=== PATIENT | female | born 1980 | race Caucasian/White ===

== ENCOUNTER 2016-09-12 20:57 | Emergency (ER) | payer OTHER ==
[2016-09-12] MEDS ORDERED: Sodium Chloride 0.9% 1,000 ML IV ONE (21:05)
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
--- NOTE | 2016-09-13 13:24 | Diagnostic Imaging Report ---
Skull series (4 views) HISTORY: Headache, trauma No acute bony abnormalities. No fractures. Normal aeration of the paranasal sinuses. IMPRESSION: No acute abnormalities
== END 2016-09-12 22:00 | disposition still patient (30) ==
LOC: ER 20:57
DX: S09.90XA Unspecified injury of head, initial encounter (principal); I10 Essential (primary) hypertension; F10.129 Alcohol abuse with intoxication, unspecified; Y04.0XXA Assault by unarmed brawl or fight, initial encounter; Y93.9 Activity, unspecified; Y92.89 Other specified places as the place of occurrence of the external cause; Y99.8 Other external cause status
CPT/HCPCS: 70260-TC; Z7502

== ENCOUNTER 2016-11-14 22:52 | Emergency (ER) | payer OTHER ==
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
[2016-11-14 23:44] LABS: % EOSINOPHILS 1.1 % (0.0-5.0); % LYMPHOCYTES 36.2 % (20.0-50.0); % MONOCYTES 6.6 % (2.0-10.0); % NEUTROPHILS 55.1 % (40.0-80.0); HEMATOCRIT 36.3 % (35.0-45.0); HEMOGLOBIN 12.8 gm/dL (11.7-15.5); MEAN CELL VOLUME 90.5 fl (81-100); MEAN CORPUSCULAR HGB CONC 35.3 pg (28.0-36.0); MEAN PLATELET VOLUME 7.4 fl; NEUTROPHILE ABSOLUTE 4.3 Th/cmm (1.8-8.0); RED BLOOD COUNT 4.01 Mil/cmm (3.80-5.10); RED CELL DISTRIBUTION WIDTH 11.2 % (11.5-20.0); WHITE BLOOD COUNT 7.9 Th/cmm (4.8-10.8)
[2016-11-14 23:45] LABS: PLATELET COUNT 322 Th/cmm (150-400)
[2016-11-14 23:51] LABS: PROTHROMBIN TIME (TEST) 8.9 SECONDS (9.5-11.5)
[2016-11-14 23:54] LABS: INR 0.9 (0.5-1.4)
[2016-11-14 23:55] LABS: ALB/GLOB RATIO 1.5 (1.0-1.8); ALKALINE PHOSPHATASE 71 U/L (34-104); ANION GAP 10.9 (7.0-16.0); BILIRUBIN,TOTAL 0.3 mg/dL (0.3-1.0); BUN - UREA NITROGEN 10 mg/dL (7-25); BUN/CREATININE RATIO 11.1; CALCIUM SERUM 9.3 mg/dL (8.6-10.3); CARBON DIOXIDE 21.9 mEq/L (21.0-31.0); CHLORIDE 106 mEq/L (98-107); CREATININE - SERUM 0.9 mg/dL (0.6-1.2); GLUCOSE 108 mg/dL (70-105); POTASSIUM SERUM 3.8 mEq/L (3.5-5.1); SGOT 18 U/L (13-39); SGPT/ALT 16 U/L (7-52); SODIUM SERUM 135 mEq/L (136-145)
[2016-11-14 23:56] LABS: CHOLESTEROL 136 mg/dL (<200); TRIGLYCERIDES 662 mg/dL (<150)
== END 2016-11-14 23:46 | disposition left against medical advice (07) ==
LOC: ER 22:52
DX: F29 Unspecified psychosis not due to a substance or known physiological condition (principal); R51 Headache; F17.200 Nicotine dependence, unspecified, uncomplicated
CPT/HCPCS: 99284; 96372; 84484; 36415; 84443; 86592; 85025; 85610; 85730; 80053; 80061; J1885; Z7502

== ENCOUNTER 2016-11-16 21:30 | Emergency (ER) | payer OTHER | END 2016-11-16 22:45 | disposition left against medical advice (07) | LOC: ER 21:30 | DX: R51 Headache (principal) ==

== ENCOUNTER 2017-07-02 17:15 | Emergency (ER) | payer OTHER | END 2017-07-02 17:47 | disposition left against medical advice (07) | LOC: ER 17:15 | DX: F41.9 Anxiety disorder, unspecified (principal) ==

== ENCOUNTER 2017-08-25 14:03 | Emergency (ER) | payer OTHER, MEDICAID ==
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
--- NOTE | 2017-08-26 08:43 | Diagnostic Imaging Report ---
Right humerus (2 views) HISTORY: Pain, trauma The exam demonstrates predominantly transverse displaced slightly overlapping fracture of the midhumerus. IMPRESSION: 1. Displaced fracture involving the midshaft of the humerus.
--- NOTE | 2017-08-26 08:44 | Diagnostic Imaging Report ---
Right shoulder (2 views) HISTORY: Pain, trauma The exam demonstrates a displaced, somewhat overlapping, angulated fracture involving the midshaft of the right humerus. No focal amenities seen about the right shoulder. No dislocation. IMPRESSION: 1. Fracture involving the midshaft of the humerus
== END 2017-08-25 20:29 | disposition home or self-care (01) ==
LOC: ER 14:03
DX: S42.301A Unspecified fracture of shaft of humerus, right arm, initial encounter for closed fracture (principal); Z91.09 Other allergy status, other than to drugs and biological substances; V89.2XXA Person injured in unspecified motor-vehicle accident, traffic, initial encounter; Y93.89 Activity, other specified; Y92.488 Other paved roadways as the place of occurrence of the external cause; Y99.8 Other external cause status
CPT/HCPCS: 99285; 96372; 73030; 73060; 81025; J1885